=== PATIENT | male | born 1960 | race Caucasian/White ===

== ENCOUNTER 2024-03-12 13:42 | Emergency (ER) | payer BC ==
[2024-03-12] MEDS ORDERED: Boostrix 0.5 ML (Tdap) VIAL (>/=7 yrs of age) ONE (13:53)
[2024-03-12] MEDS ORDERED: Lidocaine 1% w/Epinephrine 1:100K 20 ML VIAL ONE (13:53)
== END 2024-03-12 14:30 | disposition home or self-care (01) ==
LOC: NAV ERS 13:42
DX: S61.210A Laceration without foreign body of right index finger without damage to nail, initial encounter (principal); Z23 Encounter for immunization; W26.0XXA Contact with knife, initial encounter
CPT/HCPCS: 12002; 90471; 90715

== ENCOUNTER 2024-06-03 08:32 | Emergency (ER) | payer BC ==
[2024-06-03] MEDS ORDERED: Oxymetazoline HCl 0.05% (30 ML BOT) ONE (09:03)
== END 2024-06-03 09:15 | disposition home or self-care (01) ==
LOC: NAV ERS 08:32
DX: R04.0 Epistaxis (principal); I25.10 Atherosclerotic heart disease of native coronary artery without angina pectoris; I10 Essential (primary) hypertension
CPT/HCPCS: 99283